=== PATIENT | male | born 1975 | race African-American/Black ===

== ENCOUNTER 2019-03-02 21:35 | Emergency (ER) | payer SELFPAY ==
[~2019-03-02] VITALS: Ht 180.3 cm; Wt 82.0 kg
[2019-03-02 21:42] VITALS: BP 102/61
== END 2019-03-02 22:08 | disposition left against medical advice (07) ==
LOC: ER 21:35
DX: Z53.21 Procedure and treatment not carried out due to patient leaving prior to being seen by health care provider (principal)